=== PATIENT | male | born 1940 | race Caucasian/White ===

== ENCOUNTER 2025-06-11 23:30 | Inpatient (IN) | payer OTHER, MEDICARE, SELFPAY ==
[2025-06-11 12:04] VITALS: BP 144/81
--- NOTE | 2025-06-11 13:32 | ED.GENMED ---
History of Present Illness
<Dirk Olivas MD, Resident - Last Filed: 06/11/25 16:38>
General
Chief Complaint: Fall
Source: patient
Time Seen by Provider: 06/11/25 13:18
History of Present Illness
History of Present Illness:
Patient is a 84-year-old male presents to the emergency department with a large left arm laceration after falling while going up stairs. Patient was in his normal state of health prior to the fall when he was going upstairs lost his balance and
fell backwards. He has a history of hyperlipidemia, and colon cancer, hypertension, nicotine dependence, nephrolithiasis and he takes lisinopril, simvastatin, and Eliquis. There is a large visible laceration along the lateral forearm from the
proximal portion of the wrist to distal to the elbow. Patient has normal range of motion. Much blood he has lost since the fall and laceration. He did not hit his head during the fall and he did not lose consciousness. Patient denies any
shortness of breath, chest tightness, chest pain. Patient denies any nausea vomiting or diarrhea. He states that he fell in his normal state of mind and was not falling due to confusion or any kind of dizziness. Patient seen resting comfortably in
bed and in positive spirits.
Past History
<Dirk Olivas MD, Resident - Last Filed: 06/11/25 16:38>
Past History
ED Past Medical History: Cancer (Throat and colon), HTN, Hypercholesterolemia and Other (Kidney stones)
ED Past Surgical History: Bowel resection
Social History
Tobacco: Former smoker
Living: with family
Review of Systems
<Dirk Olivas MD, Resident - Last Filed: 06/11/25 16:38>
Review of Systems
Constitutional: Reports no symptoms
EENT: Reports no symptoms
Respiratory: Reports no symptoms
Cardiac: Reports no symptoms
ABD/GI: Reports no symptoms
: Reports no symptoms
Skin: Reports other (Laceration of the left lateral forearm. contusion of the right lateral forearm. Right hip pain that is worsening with hardness under the skin)
Neurological: Reports no symptoms
Endocrine: Reports no symptoms
Hematologic/Lymphatic: Reports no symptoms
Psychiatric: Reports no symptoms
Phy Exam
<Dirk Olivas MD, Resident - Last Filed: 06/11/25 16:38>
General Physical Exam
General Presentation: well appearing and no apparent distress
General age: appears stated age
General Skin: warm, dry and other (Laceration of the left lateral forearm. contusion of the right lateral forearm. Growing contusion on the right hip)
General Habitus: elderly
General Mental: alert
General Hydration: appears well hydrated
Cardiovascular Exam
Cardiovascular Exam: regular rate/rhythm, no edema, no gallop, no JVD and no murmur
Pulmonary Exam
Pulmonary Exam: lungs clear, no respiratory distress, no rales, chest non tender, no crackles, no rhonchi, no stridor, no wheezing and no cough
Musculoskeletal Exam
Musculoskeletal Exam: full ROM
Skin Exam
Skin Exam: laceration (Laceration of the left lateral forearm. contusion of the right lateral forearm. Growing contusion on the right hip)
Course
<Dirk Olivas MD, Resident - Last Filed: 06/11/25 16:38>
Orders/Labs/Results
Orders:
Orders
06/11/25 13:49
Lidocaine 1% [Xylocaine 1%] 10 ml INJ ONCE ONE
06/11/25 14:56
CT Cervical Spine W/o Iv Contr Urgent
Comment:
Reason For Exam: trauma
CT Head W/o Iv Contrast Urgent
Comment:
Reason For Exam: trauma
Tetanus/Diphth/Acelpertussis [Adacel] 0.5 ml IM .ONCE ONE
06/11/25 15:35
CT Chest/abd/pel W Iv Cont Urgent
Comment:
Reason For Exam: trauma
06/11/25 16:19
Complete Blood Count/No Diff Urgent
Comprehensive Metabolic Panel Urgent
Abnormal Lab Results
06/11/25
16:19
RBC 4.45 L 10^6/uL
(4.70-6.10)
MCHC 32.7 L g/dL
(33.0-37.0)
RDW 14.6 H %
(11.5-14.5)
06/11/25 16:19
Vital Signs
Initial and Last Documented VS:
Initial Vital Signs
Pulse Resp BP Pulse Ox
74 18 144/81 94
06/11/25 12:04 06/11/25 12:04 06/11/25 12:04 06/11/25 12:04
Last Documented Vital Signs
Temp Pulse Resp BP Pulse Ox
98.3 F 88 18 158/94 97
06/11/25 16:23 06/11/25 16:23 06/11/25 16:23 06/11/25 16:23 06/11/25 16:23
<Prashant Pruitt, DO - Last Filed: 06/11/25 16:52>
Orders/Labs/Results
Orders:
Orders
06/11/25 13:49
Lidocaine 1% [Xylocaine 1%] 10 ml INJ ONCE ONE
06/11/25 14:56
CT Cervical Spine W/o Iv Contr Urgent
Comment:
Reason For Exam: trauma
CT Head W/o Iv Contrast Urgent
Comment:
Reason For Exam: trauma
Tetanus/Diphth/Acelpertussis [Adacel] 0.5 ml IM .ONCE ONE
06/11/25 15:35
CT Chest/abd/pel W Iv Cont Urgent
Comment:
Reason For Exam: trauma
06/11/25 16:19
Complete Blood Count/No Diff Urgent
Comprehensive Metabolic Panel Urgent
Abnormal Lab Results
06/11/25
16:19
RBC 4.45 L 10^6/uL
(4.70-6.10)
MCHC 32.7 L g/dL
(33.0-37.0)
RDW 14.6 H %
(11.5-14.5)
06/11/25 16:19
Vital Signs
Initial and Last Documented VS:
Initial Vital Signs
Pulse Resp BP Pulse Ox
74 18 144/81 94
06/11/25 12:04 06/11/25 12:04 06/11/25 12:04 06/11/25 12:04
Last Documented Vital Signs
Temp Pulse Resp BP Pulse Ox
98.3 F 88 18 158/94 97
06/11/25 16:23 06/11/25 16:23 06/11/25 16:23 06/11/25 16:23 06/11/25 16:23
<Dirk Olivas MD, Resident - Last Filed: 06/11/25 16:38>
*Pulse Oximetry
SaO2: 94
Oxygen Mode of Delivery: Room air
Patient hypoxic: no
*Critical Care Note
Total Time (30-74mins, 75-104mins- exclusive of procedures): Not Applicable
<Dirk Olivas MD, Resident - Last Filed: 06/11/25 16:38>
Update Note
Update Note:
Problem List:
large left forearm laceration
Right forearm contusion
right hip contusion it is growing
Plan:
CBC and CMP
right forearm cleaning with sutures
CT cervical spine without IV contrast
CT head without IV contrast
Tdap
CT chest abdomen pelvis with IV contrast
Differential Diagnoses:
large left forearm laceration
right arm contusion
right hip contusion
right hip fracture
hematoma
Radiology:
EKG: not applicable
Labs:
Updates:
Patient received 16 sutures at the bedside for left forearm laceration. during suture procedure patient noticed a growing hardness under the skin of the greater trochanteric bursa of the right hip. These findings combined with the persistent
bleeding during the sutures lends suspicion to likely hematoma formation.
CT of the cervical spine without IV contrast ordered along with CT head without IV contrast and CT chest abdomen and pelvis with IV contrast
ED Attending Note
<Dirk Olivas MD, Resident - Last Filed: 06/11/25 16:38>
-
Portions of this chart may have been created with voice recognition software.� Occasional wrong word or��sound alike� substitutions may have occurred due to the inherent limitations of voice recognition software.
<Prashant Puritt DO - Last Filed: 06/11/25 16:52>
ED Attending Note
Patient seen and examined by attending physician: Yes
I performed the substantive portion of visit, reviewed & personally made and approve the management plan that is documented in note by myself or KUNAL.: Yes
I performed a history and physical exam of patient and discussed management with resident, I reviewed resident's note and agree with documented findings and plan of care.: Yes
ED Attending Note:
84-year-old male brought to the ER by a friend for evaluation after he fell backwards while going down the steps. He states that he landed on his backside. He reports severe pain to his bilateral forearms. No loss of consciousness. No
paresthesias to arms or legs. He is on both aspirin and Plavix. Vital signs reviewed, patient is awake, alert, appears no acute distress, head is normocephalic atraumatic, PERRL, EOMI, conjunctiva pink, no pain on palpation of cervical spine,
bilateral upper extremities reveal multiple abrasions, there is also a 20 cm laceration present on the medial left forearm which is full-thickness with persistent bleeding, there are also superficial skin tears present along the lateral aspect of
the left hand and a skin tear present along the medial aspect of the left forearm, he is moving all extremities symmetrically without focal deficit, there is a hematoma developing over his right hip, GCS is 15. Wound was repaired by resident
physician as above as best as possible given nature of injury. Awaiting CT scans for disposition. Full patient care transferred to Dr. Nobles at end of my shift for CT results and dispo.
Discharge Plan
Departure
Prescriptions:
No Action
lisinopril 20 MG tablet
20 mg PO DAILY
multivitamin with folic acid [Tab-A-Robert] 1 TABLET tablet
1 tab PO DAILY
Patient Comments:
1 tablet
Fish Oil
DAILY
flaxseed oil 1,000 MG capsule
1,000 mg PO DAILY
simvastatin 40 MG tablet
40 mg PO QPM
doxazosin 4 MG tablet
4 mg PO DAILY
coenzyme Q10 [CoQ-10] 100 MG capsule
300 mg PO DAILY
saw palmetto-pumpkin seed oil 160 MG capsule
160 mg PO DAILY
aspirin [Aspir-81] 81 MG tablet,delayed release (DR/EC)
81 mg PO .DAILY-ON HOLD
Patient Comments:
Hasn't had for about a week due to colonoscopy
calcium carbonate [Calcium 600] 600 MG tablet
1,200 mg PO DAILY
Referrals:
Yamil Yepez MD [Family Provider, Family Practice]
Interventions
Interventions:
*Risk Screen - Suicide Last Done: 06/11/25 12:04
*Neglect/Abuse Screening Last Done: 06/11/25 16:17
*ED- Fall Risk Assessment Last Done: 06/11/25 16:16
ED- Neurological Assessment Last Done: 06/11/25 14:09
ED-Skin Assessment Last Done: 06/11/25 14:09
Discharge Date and Time
Print Language: YAKUT
[2025-06-11] MEDS: XYLOCAINE 1% 10 ML INJ (14:02)
--- NOTE | 2025-06-11 14:10 | PTCARENOTE ---
patient reports tripping and falling into a fan, resulting in a laceration to left forearm and skin tear to right elbow; pt offers no complaints other than pain and bleeding to those areas, denies any other injuries or pain elsewhere, neurologically
intact.
[2025-06-11] MEDS: ADACEL 0.5 ML IM (16:17)
[2025-06-11 16:18] VITALS: BMI 25.8
[2025-06-11 16:23] VITALS: BP 158/94
[2025-06-11 16:40] LABS: Hematocrit 40.1 % (39.0-52.0); Hemoglobin 13.1 g/dL (13.0-18.0); Mean Corp Hgb Conc. 32.7 g/dL (33.0-37.0); Mean Corpuscular Volume 90.1 fL (80.0-94.0); Platelet Count 200 10^3/uL (130-400); Red Cell Dist. Width 14.6 % (11.5-14.5)
[2025-06-11 16:54] LABS: ALT (SGPT) 21 U/L (0-50); AST (SGOT) 29 U/L (17-59); Albumin 4.0 g/dl (3.5-5.0); Alkaline Phosphatase 65 U/L (38-126); Blood Urea Nitrogen 23 mg/dl (9-20); Calcium 9.1 mg/dl (8.4-10.2); Carbon Dioxide 32 mmol/L (22-30); Chloride 104 mmol/L (98-107); Estimated Creatinine Clearance 37 ml/min; Glucose 101 mg/dl (70-99); Potassium 3.9 mmol/L (3.5-5.1); Sodium 141 mmol/L (135-145); Total Protein 6.6 g/dl (6.3-8.2); eGFR 42.22
[2025-06-11 18:26] VITALS: BP 179/87
[2025-06-11 20:05] LABS: INR 1.17; PT 15.2 Sec (11.4-14.6)
[2025-06-11 20:06] LABS: APTT 31.9 Sec (23.4-35.0)
[2025-06-11 21:23] VITALS: BP 153/96
[2025-06-11 22:41] VITALS: BP 122/74
--- NOTE | 2025-06-11 22:45 | HPS.HSE ---
Family Physician
-
Family Physician: Yamil Yepez
Chief Complaint
-
fall
History of Present Illness
84-year-old male with PMH for throat cancer, HLD, HTN, diverticulosis presents to the emergency department with a large left arm laceration after falling while going up stairs. he lost the balance and fell backwards and landed on the carpet floor.
he hit the his right hand on the fan. denied dizzy or syncope. denied fever, chills, chest pain, sob. denied abdominal pain,nv,d. denied dysuria or hematuria.
laceration on the right arm and large right hip hematoma.
Patient received a dose of tetanus in the ER
Medical History
Past Medical History
Past Medical History: Reports Other
Additional Past Medical History:
Hypercholesterolemia, colon cancer, hypertension, diverticulosis, nephrolithiasis
Past Surgical History: Reports Other
Additional Past Surgical History:
Colon resection and hernia repair
Social History
Tobacco: Former Smoker
Alcohol: None
Personal:
Living: With Family
Family History
Family History: Not pertinent
Allergies / Home Medications
Allergies reflects when Allergies were last updated in [facility].
Home Medications with original date entered in [facility]
Allergy/Medication List:
Allergies
Allergy/AdvReac Type Severity Reaction Status Date / Time
ciprofloxacin HCl (From Allergy Swelling Verified 06/11/25 12:03
Cipro)
Sulfa (Sulfonamide Allergy Hives Verified 06/11/25 12:03
Antibiotics) (Sulfa
(Sulfonamides))
Home Medications
alfuzosin 10 mg tablet,extended release 24 hr 10 mg PO DAILY 06/11/25
furosemide 20 mg tablet 20 mg PO DAILY 06/11/25
hydralazine 25 mg tablet 25 mg PO BID 06/11/25
levothyroxine 50 mcg tablet 50 mcg PO DAILY 06/11/25
rivaroxaban 10 mg tablet (Xarelto) 10 mg PO DAILY 06/11/25
Review of Systems
-
Constitutional: Reports No Symptoms
EENT: Reports No Symptoms
Respiratory: Reports No Symptoms
Cardiac: Reports No Symptoms
Abdomen/GI: Reports No Symptoms
: Reports No Symptoms
Musculoskeletal: Reports No Symptoms
Skin: Reports Other (Laceration in the left forearm wrapped in Abdiaziz. Large right hip hematoma)
Neurological: Reports No Symptoms
Endocrine: Reports No Symptoms
Hematologic/Lymphatic: Reports No Symptoms
Psych: Reports No Symptoms
Physical Exam
Vital Signs
Vital Signs
Temp Pulse Resp BP Pulse Ox
98.2 F 84 20 122/74 97
06/11/25 22:41 06/11/25 22:41 06/11/25 22:41 06/11/25 22:41 06/11/25 22:41
Physical Exam
General: Well Developed, Well Nourished and No Apparent Distress
HEENT: NormoCephalic, Moist mucous membranes and Atraumatic
Respiratory: Clear
Cardiac: S1/S2 and Regular Rhythm; No Murmur or Rub
GI: Soft, Non Tender, Non Distended and Normal Bowel Sounds; No Organomegaly
Rectal: Deferred by Provider
Musculoskeletal: No Clubbing, No Cyanosis and No Edema
Skin: Rash and Other (Left armLaceration, right hip hematoma)
Neuro: AO x 3 and Nonfocal/grossly intact
Psych: Calm
Laboratory Results
-
06/11/25 16:19
06/11/25 16:19
Laboratory Results
PT 15.2 Sec (11.4-14.6) H 06/11/25 19:48
INR 1.17 06/11/25 19:48
APTT 31.9 Sec (23.4-35.0) 06/11/25 19:48
Total Bilirubin 0.8 mg/dl (0.2-1.3) 06/11/25 16:19
AST 29 U/L (17-59) 06/11/25 16:19
ALT 21 U/L (0-50) 06/11/25 16:19
Alkaline Phosphatase 65 U/L (38-126) 06/11/25 16:19
Data Reviewed
-
CT Scan: Report Reviewed by me
Lab Data: Labs Reviewed by me
Impression/Plan
-
# Right hip hematoma status post mechanical fall
# Left arm laceration
#Active extravasation-not amenable to embolization as per IR radiology
- Hold Xarelto
- Monitor hemoglobin
-PT/OT consulted
- Surgery consulted
- Chest abdomen pelvis CT with impression of 10.4 x 6.8 x 3.7 cm hematoma in the subcutaneous right lateral hip with evidence for a small amount of active bleeding within the central aspect of the hematoma.No other acute posttraumatic abnormality
identified in the chest, abdomen, or pelvis. Other chronic findings, as detailed above.
- Head CT with impression of No acute intracranial abnormality.Right maxillary sinusitis, likely acute on chronic.
- Cervical spine CT with impression No CT evidence for an acute posttraumatic abnormality of the cervical spine.
# Acute kidney injury likely dehydration
- Creatinine 1.6
-hold Lasix
-normal saline 1 bag
#BPH
-alfuzosin
#essential HTN
-hold furosemide
-hydralazine continued with hold parameter
#hypothyroidism
-levothyroxine continued
#DVT prophylaxis
-scd
#CODE status
-full code
--- NOTE | 2025-06-11 23:11 | W.PN.UPDATE ---
Update Note
Progress Note Update
I saw and examined the patient.
The [employer] Foster note was reviewed and I agree with the note.
Comment: 84 y/o M, hx of throat cancer, presumably on Xarelto for prophylaxis, HTN, HLD presents to ER for fall and large left arm laceration. Patient reports going up the stairs and falling backwards after losing balance. Trauma workup revealed
10.4 x 6.8 x 3.7 cm hematoma in the subcutaneous right lateral hip with evidence for a small amount of active bleeding within the central aspect of the hematoma. This finding was reviewed with IR who states not amenable to embolization therefore
conservative management was recommended.
Exam:
General: Well Developed, Well Nourished and No Apparent Distress
HEENT: NormoCephalic, Moist mucous membranes and Atraumatic
Respiratory: Clear
Cardiac: S1/S2 and Regular Rhythm; No Murmur or Rub
GI: Soft, Non Tender, Non Distended and Normal Bowel Sounds; No Organomegaly
Rectal: Deferred by Provider
Musculoskeletal: No Clubbing, No Cyanosis and No Edema
Skin: Rash and Other (Left arm Laceration, right hip hematoma)
Neuro: AO x 3 and Nonfocal/grossly intact
Psych: Calm
Plan: hold Xarelto. pain control. PT/OT. Continue usual home meds. For JAYCOB, will send UA and hold Lasix; provide IVF. If hematoma expanding, may need to re-evaluate with IR and re-scan. consult General surgery for AM evaluation.
[2025-06-12 01:13] VITALS: BP 134/68; BMI 25.2
[2025-06-12] MEDS: NSS 1000 IV (01:33)
[2025-06-12] MEDS: TYLENOL 650 MG PO (01:59)
[2025-06-12] MEDS: SYNTHROID 50 MCG PO (06:17)
[2025-06-12 06:59] LABS: Hematocrit 33.4 % (39.0-52.0); Hemoglobin 10.7 g/dL (13.0-18.0); Mean Corp Hgb Conc. 32.0 g/dL (33.0-37.0); Mean Corpuscular Volume 91.0 fL (80.0-94.0); Platelet Count 168 10^3/uL (130-400); Red Cell Dist. Width 14.6 % (11.5-14.5)
[2025-06-12 07:11] LABS: Blood Urea Nitrogen 25 mg/dl (9-20); Calcium 8.3 mg/dl (8.4-10.2); Carbon Dioxide 31 mmol/L (22-30); Chloride 107 mmol/L (98-107); Estimated Creatinine Clearance 39 ml/min; Glucose 102 mg/dl (70-99); Potassium 3.6 mmol/L (3.5-5.1); Sodium 138 mmol/L (135-145); eGFR 45.62
[2025-06-12 07:55] VITALS: BP 154/75
[2025-06-12] MEDS: APRESOLINE 25 MG PO (08:10)
[2025-06-12] MEDS: FLOMAX 0.4 MG PO (08:10)
--- NOTE | 2025-06-12 10:25 | CON.GS ---
Medical History
-
Chief Complaint: RIGHT hip discomfort
History of Present Illness:
Patient is an 84 yo M with a PMH of HTN, CHF, hypothyroidism, nephrolithiasis, transverse colon cancer s/p open resection by Dr. Flanagan and Tiburcio, s/p open bilateral inguinal hernia repair repairs with mesh, and throat cancer (on Xarelto for
blood clot prevention?) who presents to the ER following a low level fall. Mr. Pal states that yesterday evening he suffered a fall approximately 2 stairs and hide crashing into a fan on the floor. He denies hitting his head or loss of
consciousness. The brunt of his fall was taken on the RIGHT hip. Currently has some discomfort in that area. He also had a laceration of the LEFT forearm which was sutured in the ER. No dizziness or lightheadedness. No abdominal pain or
discomfort. No fevers or chills. Overall he feels well and is eager for discharge.
Past Medical History
Past Medical History: Cancer (head and neck), CHF, HTN and Hypothyroidism
Social History
Tobacco: Former Smoker
Alcohol: None
Drug: None
Personal:
Living: With Family
Family History
Family History: Reviewed & Not Pertinent
Allergies / Home Medications
Allergy/AdvReac Type Severity Reaction Status Date / Time
ciprofloxacin HCl (From Allergy Swelling Verified 06/11/25 12:03
Cipro)
Sulfa (Sulfonamide Allergy Hives Verified 06/11/25 12:03
Antibiotics) (Sulfa
(Sulfonamides))
�Medication �Instructions �Recorded �Confirmed �Type
alfuzosin 10 mg tablet,extended 10 mg PO DAILY Blood Pressure 06/11/25 06/11/25 History
release 24 hr
furosemide 20 mg tablet 20 mg PO DAILY Fluid 06/11/25 06/11/25 History
Retention/Swelling
hydralazine 25 mg tablet 25 mg PO BID Fluid 06/11/25 06/11/25 History
Retention/Swelling
levothyroxine 50 mcg tablet 50 mcg PO DAILY Thyroid 06/11/25 06/11/25 History
rivaroxaban 10 mg tablet (Xarelto) 10 mg PO DAILY Blood Clot 06/11/25 06/11/25 History
Prevention/Tx
Review of Systems
-
A 10 point review of systems was completed, and was negative except as per HPI.
Physical Exam
Vital Signs
Temp Pulse Resp BP Pulse Ox
98.3 F 70 18 154/75 98
06/12/25 07:55 06/12/25 08:10 06/12/25 07:55 06/12/25 08:10 06/12/25 07:55
06/11/25 06/12/25 06/13/25
06:59 06:59 06:59
Actual Weight 81.817 kg
Body Mass Index (BMI) 25.2
Lab Results
06/12/25 06:34
WBC 6.6 10^3/uL (4.8-10.8) 06/12/25 06:34
Hgb 10.7 g/dL (13.0-18.0) L 06/12/25 06:34
Hct 33.4 % (39.0-52.0) L 06/12/25 06:34
Plt Count 168 10^3/uL (130-400) 06/12/25 06:34
Physical Exam
General: Well Developed, Well Nourished and No Apparent Distress
HEENT: Normocephalic and Anicteric
Respiratory: Non Labored Respirations
Cardiac: Regular Rhythm
GI: Soft, Non Tender, Non Distended and Incisions (midline well healed, large palpable incisional hernia, bl groin incisions well healed)
Musculoskeletal: Other (RIGHT thigh large area of soft tissue swelling and overlying ecchymosis stretching approximately 11 cm, no skin breakdown or drainage, no skin necrosis or ulceration, slightly firm, minimal tenderness, LEFT forearm dressing
c/d/i)
Skin: Warm and Dry
Neuro: Nonfocal/Grossly Intact and Other (Sensation intact to light touch and motor 5/5 in RLE)
Data Reviewed
-
CT Scan: Image Personally Visualized and interpreted and Report Reviewed by me
Labs: Labs Reviewed by me
Old Records: Reviewed
Assessment / Plan
-
Patient is an 84 yo M p/w RIGHT hip/thigh hematoma and LEFT forearm laceration following a low level fall
The natural history and pathophysiology of hematomas was discussed. CT scan imaging was reviewed, active blush noted on delayed imaging. Situation complicated by anticoagulation with Xarelto. Recommend holding Xarelto. Would question resuming
this given the questionable indication - would not resume this medication until his RIGHT thigh issues have resolved. Recommend ice and compression of the RIGHT hip area with compressive underwear (abdominal binder likely to be difficult given the
lichenification). If worsening swelling or continued drop in hemoglobin concerning for ongoing bleeding would repeat his CT scan imaging. IR consult noted, no plan for intervention at this time. No role or indication for surgical intervention at
this time. All questions answered.
-- No plans or indication for surgical intervention at this time
-- Hold Xarelto, trend Hb
-- Ice to RIGHT hip, would use compression underwear as outpatient (binder unlikely to be helpful given location, though would consider if worsening swelling)
-- Repeat CT scan imaging if worsening swelling or drop in Hb
--- NOTE | 2025-06-12 10:38 | CM ---
Addendum entered by Lashawn Marino 06/12/25 11:23:
PCP:Yamil Yepez
Rx: [facility]/ [facility]
Original Note:
Reviewed chart. Met with patient bedside. IA completed. Lives with in 2 story home with 2 steps to the entrance and 10 steps to 2nd floor. Powder room on first floor. Has grab bars for toilet. No hx of HC, SNF.Confirmed PCP, Rx insurance and
drug coverage.
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
Plan: home with no needs
[2025-06-12 12:28] LABS: Hematocrit 35.9 % (39.0-52.0); Hemoglobin 11.9 g/dL (13.0-18.0)
--- NOTE | 2025-06-12 13:01 | W.PN.HOSP.TC ---
Today's Communication/Plan
-
monitor h/h/
hold xarelto, hold lasix
Assessment / Plan
Assessment / Plan
84M with history of throat cancer, HTN, HLD, on Xarelto, p/w fall, found to have large left arm laceration and right thigh hematoma with small amount of active bleeding.
1. Right hip hematoma
due to trauma from mechanical fall
Active extravasation on CT -not amenable to embolization as per IR radiology
Hold Xarelto
Discussed with general surgery, no acute surgical intervention required
Patient with anemia, acute blood loss. Monitor H&H Q8 and transfuse if hemoglobin less than 7. If hemoglobin trends downward we will have to consider repeat CT.
2. Left arm laceration
sutured in ER
3. Acute kidney injury likely dehydration
-Creatinine 1.6-->1.5
-hold Lasix. Rec'd IVF
4. BPH
-alfuzosin
5. essential HTN
-hold furosemide due to JAYCOB
-hydralazine continued with hold parameter
BP elevated
6. hypothyroidism
-levothyroxine continued
7. DVT prophylaxis
-scd
Anticipated Discharge: 24 - 48 hours
Subjective/Interval History
-
Date of Service: June 12, 2025
Patient feeling well, says he has been walking the halls and has no pain in his leg
Objective Data
-
Labs:
Laboratory Results
06/12/25 06/12/25 06/12/25
06:34 12:22 18:30
WBC 6.6
Hgb 10.7 L 11.9 L Pending
Hct 33.4 L 35.9 L Pending
Plt Count 168
Sodium 138
Potassium 3.6
Chloride 107
Carbon Dioxide 31 H
BUN 25 H
Creatinine 1.5 H
Glucose 102 H
Calcium 8.3 L
06/12/25
21:00
WBC
Hgb Pending
Hct Pending
Plt Count
Sodium
Potassium
Chloride
Carbon Dioxide
BUN
Creatinine
Glucose
Calcium
Vital Signs:
Vital Signs
Temp Pulse Resp BP Pulse Ox
98.3 F 70 18 154/75 98
06/12/25 07:55 06/12/25 08:10 06/12/25 07:55 06/12/25 08:10 06/12/25 07:55
I&O
06/11/25 06/12/25 06/13/25
06:59 06:59 06:59
Intake Total 0 / 0
Output Total 175 / 175
Balance -175 / -175
Review of Systems
-
All other systems: Reviewed and negative
Physical Exam
-
General: No Apparent Distress
HEENT: Moist Mucous Membranes, Anicteric and PERRLA
Respiratory: Clear to Auscultation; Negative Wheezes, Rales or Rhonchi
Cardiac: Regular Rhythm and S1/S2; Negative Murmur, Rub or Gallop
GI: Soft, Nontender, Nondistended and Normal Bowel Sounds
Musculoskeletal: Other (Right thigh hematoma and induration. Nonpainful. Distal pulses intact)
Skin: Warm, Dry and Lesions (Left arm wrapped in Abdiaziz at wound site); Negative Rash or Ulcers
Neuro: Awake and AO x 3
Hematologic / Lymphatic: No Lymphadenopathy
Psych: Calm
Data Reviewed
-
CT Scan: Report Reviewed by me and Discussed with Physician
Labs: Labs Reviewed by me, Discussed with Physician and Discussed with Patient
[2025-06-12 15:20] VITALS: BP 159/82
--- NOTE | 2025-06-12 18:18 | PTCARENOTE ---
Patient leaving against medical advice. Form signed by patient and hospitalist. is picking patient up.
--- NOTE | 2025-06-13 17:55 | W.DCSUMMARY ---
Discharge Summary
Discharge Data
Date of Admission: 06/11/25
Date of Discharge: 06/12/25
-
Pending Results: No
Hospital Course
Attending physician on day of discharge:
Izzy Spaulding MD
Admission diagnosis:
Right thigh hematoma
Discharge diagnosis:
Right thigh hematoma
Left arm laceration
Consultations:
General surgery
Procedures:
None
Hospital course:
Patient was admitted after a fall, had right thigh hematoma, CT showed active extravasation, IR evaluation determined no acute intervention required, surgical consultation also determined no acute intervention required. Patient's hemoglobin had
dropped from baseline, H&H were being monitored, oral anticoagulation was being held. Patient left AMA in the evening.
Discharge disposition:
Left AMA
Discharge Plan
-
Patient Disposition: Against Medical Advice
Prescriptions:
No Action
hydralazine 25 mg tablet
25 mg PO BID
levothyroxine 50 mcg tablet
50 mcg PO DAILY
furosemide 20 mg tablet
20 mg PO DAILY
alfuzosin 10 mg tablet extended release 24 hr
10 mg PO DAILY
Xarelto 10 mg tablet
10 mg PO DAILY
Discharge Date and Time
Discharge Date/Time: 06/12/25 19:02
Print Language: CZECH
== END 2025-06-12 19:02 | disposition left against medical advice (07) | DRG 605 ==
LOC: 4 EAST ACU 23:30
PROVIDERS: Emergency Medicine; Registered Nurse; ADMITTING PHYSICIAN Internal Medicine; ATTENDING PHYSICIAN Internal Medicine; CONSULT PHYSICIAN Surgery; EMERGENCY PHYSICIAN Emergency Medicine; FAMILY PHYSICIAN Family Medicine
PROC: 3E0234Z Introduction of Serum, Toxoid and Vaccine into Muscle, Percutaneous Approach (ICD-10-PCS; 2025-06-11)
DX: S70.01XA Contusion of right hip, initial encounter (principal); N17.9 Acute kidney failure, unspecified; D62 Acute posthemorrhagic anemia; D68.32 Hemorrhagic disorder due to extrinsic circulating anticoagulants; S51.812A Laceration without foreign body of left forearm, initial encounter; E78.00 Pure hypercholesterolemia, unspecified; I11.0 Hypertensive heart disease with heart failure; I50.9 Heart failure, unspecified; E86.0 Dehydration; N40.0 Benign prostatic hyperplasia without lower urinary tract symptoms; J32.0 Chronic maxillary sinusitis; E03.9 Hypothyroidism, unspecified; W10.8XXA Fall (on) (from) other stairs and steps, initial encounter; Y93.89 Activity, other specified; Y92.9 Unspecified place or not applicable; Z53.29 Procedure and treatment not carried out because of patient's decision for other reasons; Z85.038 Personal history of other malignant neoplasm of large intestine; Z87.442 Personal history of urinary calculi; Z87.891 Personal history of nicotine dependence; Z85.819 Personal history of malignant neoplasm of unspecified site of lip, oral cavity, and pharynx; Z87.19 Personal history of other diseases of the digestive system; Z23 Encounter for immunization; Z88.1 Allergy status to other antibiotic agents; Z88.2 Allergy status to sulfonamides; Z79.890 Hormone replacement therapy; Z79.01 Long term (current) use of anticoagulants
CPT/HCPCS: 70450; 71260; 72125; 74177; 80048; 80053; 85014; 85018; 85027; 85610; 85730; 86850; 86900; 86901; 87070; 90471; 90715; 97162; 97166; 99285; Q9967